=== PATIENT | male | born 1945 | race Caucasian/White ===

== ENCOUNTER 2017-07-22 08:03 | Day surgery (SDC) | payer MEDICARE ==
[2017-07-22] MEDS: CEFUROXIME 1MG/0.1ML INTRACAMERAL INJ As Ordered (06:50)
[~2017-07-22 08:03] MED LIST: ACETAMINOPHEN 325 MG TAB PO; PHENYLEPHRINE HCL 10 % OPHTH. SOL 5ML OS; PROPARACAINE 0.5% OPHTH SOL 15ML OS
[2017-07-22] MEDS: CYCLOPENTOLATE 2% OPHTH SOLN 2ML BTL OS (08:25)
[2017-07-22] MEDS: LIDOCAINE 3.5 % 1ML OPHTH TOPICAL GEL OU (08:25)
[2017-07-22] MEDS: PHENYLEPHRINE 2.5% OPHTH SOL 2ML OS (08:30)
[2017-07-22] MEDS: OFLOXACIN 0.3 % (OCUFLOX) OPTH SOL 5ML OS (08:30)
[2017-07-22] MEDS: TROPICAMIDE 1% OPHTH SOLN 2ML OS (08:35)
[2017-07-22] MEDS: POVIDONE-IODINE 5% OPHTH PREP SOL 30ML As Ordered (09:07)
[2017-07-22] MEDS ORDERED: fentaNYL 100 MCG/2 ML INJECTION (J3010) As Ordered (09:10)
[2017-07-22] MEDS ORDERED: MIDAZOLAM INJ 2 MG/2 ML VIAL (J2250) As Ordered (09:10)
[2017-07-22] MEDS: LIDOCAINE 1% SDV 5 ML VIAL As Ordered (09:13)
[2017-07-22] MEDS: HEALON DUET (HEALON 10MG/ML 0.55ML & HEALON ENDOCOAT 30MG/ML 0.85ML) As Ordered (09:13)
[2017-07-22] MEDS: BALANCED SALT IRRIGATION SOLUTION 500ML BAG (FOR OR EYE MACHINE) As Ordered (09:14)
[2017-07-22] MEDS ORDERED: AcetaZOLAMIDE 500 MG ER CAP As Ordered (09:40)
[2017-07-22] MEDS ORDERED: TRIMETHOBENZAMIDE 300 MG CAP PO (10:00)
[2017-07-22] MEDS: AcetaZOLAMIDE 500 MG ER CAP PO (10:08)
[2017-07-22] MEDS: KETOROLAC 0.5% OPHTH SOLN OS (10:29)
== END 2017-07-22 10:40 | disposition home or self-care (01) ==
LOC: M SDC 08:03
DX: H25.12 Age-related nuclear cataract, left eye (principal); I10 Essential (primary) hypertension; E78.00 Pure hypercholesterolemia, unspecified; E03.9 Hypothyroidism, unspecified; M19.90 Unspecified osteoarthritis, unspecified site; M54.9 Dorsalgia, unspecified; G47.9 Sleep disorder, unspecified; N40.0 Benign prostatic hyperplasia without lower urinary tract symptoms; Z88.0 Allergy status to penicillin; Z79.899 Other long term (current) drug therapy
CPT/HCPCS: 66984

== ENCOUNTER 2017-12-16 08:01 | Day surgery (SDC) | payer MEDICARE ==
[~2017-12-16 08:01] MED LIST changes: +CYCLOPENTOLATE 2% OPHTH SOLN 2ML BTL OD; +LIDOCAINE 1% MDV 20ML VIAL SQ; +MIDAZOLAM INJ 2 MG/2 ML VIAL (J2250) As Ordered; +OFLOXACIN 0.3 % (OCUFLOX) OPTH SOL 5ML OD; +PHENYLEPHRINE 2.5% OPHTH SOL 2ML OD; +PHENYLEPHRINE HCL 10 % OPHTH. SOL 5ML OD; -PHENYLEPHRINE HCL 10 % OPHTH. SOL 5ML OS; +PROPARACAINE 0.5% OPHTH SOL 15ML OD; -PROPARACAINE 0.5% OPHTH SOL 15ML OS; +TROPICAMIDE 1% OPHTH SOLN 2ML OD
[2017-12-16] MEDS ORDERED: TROPICAMIDE 1% OPHTH SOLN 2ML As Ordered (08:45)
[2017-12-16] MEDS ORDERED: PHENYLEPHRINE 2.5% OPHTH SOL 2ML As Ordered (08:45)
[2017-12-16] MEDS ORDERED: CYCLOPENTOLATE 2% OPHTH SOLN 2ML BTL As Ordered (08:45)
[2017-12-16] MEDS ORDERED: OFLOXACIN 0.3 % (OCUFLOX) OPTH SOL 5ML As Ordered (08:45)
[2017-12-16] MEDS: LIDOCAINE 3.5 % 1ML OPHTH TOPICAL GEL OU (09:13)
[2017-12-16] MEDS: POVIDONE-IODINE 5% OPHTH PREP SOL 30ML As Ordered (10:13)
[2017-12-16] MEDS: HEALON DUET (HEALON 10MG/ML 0.55ML & HEALON ENDOCOAT 30MG/ML 0.85ML) As Ordered (10:16)
[2017-12-16] MEDS: LIDOCAINE 1% SDV 5 ML VIAL As Ordered (10:16)
[2017-12-16] MEDS: AcetaZOLAMIDE 500 MG ER CAP PO (10:45)
[2017-12-16] MEDS ORDERED: TRIMETHOBENZAMIDE 300 MG CAP PO (10:45)
[2017-12-16] MEDS ORDERED: ONDANSETRON 4MG/2ML VIAL (J2405) IV (10:45)
[2017-12-16] MEDS: KETOROLAC 0.5% OPHTH SOLN OD (10:45)
== END 2017-12-16 10:56 | disposition home or self-care (01) ==
LOC: M SDC 08:01
DX: I10 Essential (primary) hypertension (principal); E78.00 Pure hypercholesterolemia, unspecified; E03.9 Hypothyroidism, unspecified; H25.11 Age-related nuclear cataract, right eye; M12.9 Arthropathy, unspecified; M54.9 Dorsalgia, unspecified; R51 Headache; N40.0 Benign prostatic hyperplasia without lower urinary tract symptoms; Z88.0 Allergy status to penicillin; Z79.899 Other long term (current) drug therapy
CPT/HCPCS: 66984